=== PATIENT | female | born 1960 | race Caucasian/White ===

== ENCOUNTER 2017-11-29 12:25 | Emergency (ER) | payer MEDICAID ==
[~2017-11-29] VITALS: Ht 177.8 cm; Wt 63.6 kg
[2017-11-29 12:35] VITALS: BP 139/107
== END 2017-11-29 16:17 | disposition left against medical advice (07) ==
LOC: ER 12:26
DX: R21 Rash and other nonspecific skin eruption (principal); Z53.21 Procedure and treatment not carried out due to patient leaving prior to being seen by health care provider